=== PATIENT | female | born 1995 | race Caucasian/White ===

== ENCOUNTER 2017-08-27 16:16 | Observation (INO) | payer OTHER ==
[~2017-08-27] VITALS: Ht 165.1 cm; Wt 74.8 kg
== END 2017-08-27 20:30 | disposition home or self-care (01) ==
LOC: MLD 16:16
PROVIDERS: ADMIT Obstetrics & Gynecology; ATTEND Obstetrics & Gynecology
DX: O26.893 Other specified pregnancy related conditions, third trimester (principal); R10.9 Unspecified abdominal pain; Z3A.38 38 weeks gestation of pregnancy
CPT/HCPCS: 59025; 76805; 81000; G0378; Q0092